=== PATIENT | female | born 1990 | race Two or more races ===

== ENCOUNTER 2024-06-29 12:54 | Outpatient (CLI) | payer OTHER | END 2024-06-29 12:55 | disposition home or self-care (01) | LOC: PRENATAL 12:54 | PROVIDERS: ATTEND Obstetrics & Gynecology Maternal & Fetal Medicine | DX: O36.80X0 Pregnancy with inconclusive fetal viability, not applicable or unspecified (principal); Z36.82 Encounter for antenatal screening for nuchal translucency; Z14.8 Genetic carrier of other disease; Z3A.12 12 weeks gestation of pregnancy ==

== ENCOUNTER 2024-08-24 08:18 | Outpatient (CLI) | payer OTHER | END 2024-08-24 08:19 | disposition home or self-care (01) | LOC: PRENATAL 08:18 | PROVIDERS: ATTEND Obstetrics & Gynecology Maternal & Fetal Medicine | DX: O44.00 Complete placenta previa NOS or without hemorrhage, unspecified trimester (principal); Z3A.19 19 weeks gestation of pregnancy ==

== ENCOUNTER 2024-10-22 08:22 | Outpatient (CLI) | payer OTHER | END 2024-10-22 08:23 | disposition home or self-care (01) | LOC: PRENATAL 08:22 | PROVIDERS: ATTEND Obstetrics & Gynecology Maternal & Fetal Medicine | DX: O26.849 Uterine size-date discrepancy, unspecified trimester (principal); O36.8199 Decreased fetal movements, unspecified trimester, other fetus; O36.5990 Maternal care for other known or suspected poor fetal growth, unspecified trimester, not applicable or unspecified; Z3A.27 27 weeks gestation of pregnancy ==

== ENCOUNTER 2024-11-02 15:51 | Outpatient (CLI) | payer OTHER ==
[2024-11-02 15:08] VITALS: BP 115/74
[2024-11-02] MEDS ORDERED: PRENATAL + DHA1 EAC1 PO (16:05)
[2024-11-02] MEDS ORDERED: [UNRECOGNIZED DRUG - OTHER] PO (16:05)
[2024-11-02] MEDS ORDERED: IRON325 MG PO (16:05)
[2024-11-02] MEDS ORDERED: DICLOFENAC35 MG PO (16:07)
[2024-11-02] MEDS ORDERED: TERBUTALINE SULFATE 1 MG/ML AMPUL SUBCUTANEO NR (16:20)
[2024-11-02 17:02] LABS: URINE APPEARANCE Cloudy; URINE BILIRRUBIN Negative (NEGATIVE); URINE COLOR Yellow; URINE GLUCOSE Negative (NEGATIVE); URINE KETONE Negative (NEGATIVE); URINE LEUKOCYTE Negative; URINE NITRATE Negative; URINE PROTEIN Negative (NEGATIVE); URINE UROBILINOGEN 0.2 E.U./dl
[2024-11-02 17:03] LABS: HEMATOCRIT 33.9 % (36.0-45.00); HEMOGLOBIN 11.7 g/dL (12.0-15.00); MEAN CELL VOLUME 90.4 fL (80.00-100.00); MEAN CORPUSCULAR HEMOGLOBIN 31.2 pg (27.00-32.0); MEAN CORPUSCULAR HGB CONC 34.5 g/dl (32.0-36.0); PLATELET COUNT 231 K/uL (150-450); RED BLOOD COUNT 3.75 M/uL (4.00-6.00); RED CELL DISTRIBUTION WIDTH 12.9 % (11.5-14.5)
[2024-11-02 17:06] LABS: URINE EPITHELIAL CELLS 12.1 uL (0.0-38.8); URINE RBC 11.9 uL (0.0-20.8); URINE WBC 108.6 uL (0.0-23.2)
[2024-11-02 17:17] LABS: INR < 0.93; PARTIAL THROMBOPLASTIN TIME 24.5 SECONDS (22.0-34.0); PROTHROMBIN TIME 9.9 SECONDS (9.0-11.5)
[2024-11-02 17:24] LABS: URINE CAST 0.58 uL (0.0-1.40); URINE MUCUS SCANT
[2024-11-02 17:25] LABS: URINE BLOOD Trace
[2024-11-02 17:27] LABS: ALBUMIN 3.2 gm/dL (3.4-5.0); BILIRUBIN TOTAL 0.18 mg/dL (0.3-1.2); CALCIUM 9.5 mg/dL (8.5-10.1); CREATININE SERUM 0.46 mg/dL (0.55-1.02); GFR 156.44; GLOBULINA 3.6 G/DL (2.4-3.5); POTASSIUM 4.03 mEq/L (3.5-5.1); TOTAL PROTEIN 6.8 gm/dL (6.4-8.2)
[2024-11-02 20:00] VITALS: BP 108/69
[2024-11-02 23:07] VITALS: BP 93/54
[2024-11-02] MEDS ORDERED: RINGERS SOLUTION,LACTATED 1,000 ML IV SCH (23:15)
[2024-11-03 03:15] VITALS: BP 109/66
[2024-11-03 07:06] VITALS: BP 92/56
[2024-11-03 10:33] VITALS: BP 97/56
== END 2024-11-03 10:33 | disposition home or self-care (01) ==
LOC: OBS/DEL 15:51
PROVIDERS: Obstetrics & Gynecology; ATTEND General Practice
DX: O46.93 Antepartum hemorrhage, unspecified, third trimester (principal); Z3A.30 30 weeks gestation of pregnancy

== ENCOUNTER 2024-11-06 10:03 | Outpatient (CLI) | payer OTHER ==
[~2024-11-06 10:03] MED LIST: DICLOFENAC35 MG PO; IRON325 MG PO; PRENATAL + DHA1 EAC1 PO; [UNRECOGNIZED DRUG - OTHER] PO
== END 2024-11-06 12:35 | disposition home or self-care (01) ==
LOC: NST 10:03
PROVIDERS: ATTEND General Practice
DX: Z34.83 Encounter for supervision of other normal pregnancy, third trimester (principal)

== ENCOUNTER → 2024-11-13 12:30 | Outpatient (CLI) | payer OTHER | END | disposition home or self-care (01) | LOC: PRENATAL 12:30 | PROVIDERS: ATTEND Obstetrics & Gynecology Maternal & Fetal Medicine | DX: O26.849 Uterine size-date discrepancy, unspecified trimester (principal); O36.8199 Decreased fetal movements, unspecified trimester, other fetus; O36.5990 Maternal care for other known or suspected poor fetal growth, unspecified trimester, not applicable or unspecified; Z3A.31 31 weeks gestation of pregnancy ==

== ENCOUNTER 2024-11-30 14:50 | Outpatient (CLI) | payer OTHER | END 2024-11-30 14:52 | disposition home or self-care (01) | LOC: PRENATAL 14:50 | PROVIDERS: ATTEND Obstetrics & Gynecology Maternal & Fetal Medicine | DX: O26.849 Uterine size-date discrepancy, unspecified trimester (principal); O36.8199 Decreased fetal movements, unspecified trimester, other fetus; O36.5990 Maternal care for other known or suspected poor fetal growth, unspecified trimester, not applicable or unspecified; Z3A.32 32 weeks gestation of pregnancy ==

== ENCOUNTER 2024-12-06 11:51 | Outpatient (CLI) | payer OTHER | END 2024-12-06 11:52 | disposition home or self-care (01) | LOC: PRENATAL 11:51 | PROVIDERS: ATTEND Obstetrics & Gynecology Maternal & Fetal Medicine | DX: Z76.1 Encounter for health supervision and care of foundling (principal) ==

== ENCOUNTER → 2024-12-20 08:14 | Outpatient (CLI) | payer OTHER | END | disposition home or self-care (01) | LOC: PRENATAL 08:14 | PROVIDERS: ATTEND Obstetrics & Gynecology Maternal & Fetal Medicine | DX: O26.849 Uterine size-date discrepancy, unspecified trimester (principal); O36.8199 Decreased fetal movements, unspecified trimester, other fetus; O36.5990 Maternal care for other known or suspected poor fetal growth, unspecified trimester, not applicable or unspecified; O32.9XX0 Maternal care for malpresentation of fetus, unspecified, not applicable or unspecified; Z3A.34 34 weeks gestation of pregnancy ==

== ENCOUNTER 2024-12-24 11:30 | Inpatient (IN) | payer OTHER ==
[~2024-12-24] VITALS: Ht 157.5 cm; Wt 59.9 kg
[2024-12-24 13:36] LABS: INR < 0.93; PARTIAL THROMBOPLASTIN TIME 23.7 SECONDS (22.0-34.0); PROTHROMBIN TIME 9.7 SECONDS (9.0-11.5)
[2024-12-28 09:39] VITALS: BP 132/86
[2024-12-28] MEDS ORDERED: CEFAZOLIN SODIUM 1,000 MG VIAL ONE (10:32)
[2024-12-28] MEDS ORDERED: ERYTHROMYCIN BASE OPHT 1GM EACH TUBE OP ONE (12:21)
[2024-12-28] MEDS ORDERED: OXYTOCIN 10 UNITS/ML VIAL ONE ×2 (12:21→17:21)
[2024-12-28] MEDS ORDERED: CHLORHEXIDINE GLUCONATE 120 ML BOTTLE TP SCH (13:30)
[2024-12-28] MEDS ORDERED: OXYTOCIN 1,000 ML IV SCH (13:30)
[2024-12-28] MEDS ORDERED: FAMOTIDINE/PF 20 MG/2 ML VIAL IV SCH (13:31)
[2024-12-28] MEDS ORDERED: MORPHINE SULFATE 4 MG/ML VIAL IV PRN (13:45)
[2024-12-28] MEDS ORDERED: ONDANSETRON HCL 2 MG/ML VIAL IV PRN (13:45)
[2024-12-28] MEDS ORDERED: MORPHINE SULFATE 4 MG/ML VIAL IV ONE (14:40)
[2024-12-28] MEDS ORDERED: FAMOTIDINE/PF 20 MG/2 ML VIAL ONE (16:54)
[2024-12-28] MEDS ORDERED: ACETAMINOPHEN 325 MG TABLET PO SCH (17:00)
[2024-12-28 17:49] LABS: BASO % 0.1 % (0.1-1.2); EOS # 0.01 (0.04-0.54); EOS % 0.1 % (0.7-7.0); HEMATOCRIT 30.8 % (34.1-44.9); HEMOGLOBIN 10.4 g/dL (11.2-15.7); LYMPH # 1.12 (1.18-3.74); LYMPH % 10.7 % (19.3-53.1); MEAN CORPUSCULAR HEMOGLOBIN 29.7 pg (25.6-32.2); MONO # 0.51 (0.24-0.82); MONO % 4.9 % (4.7-12.5); NEUT # 8.81 (1.56-6.13); NEUT % 83.7 % (34.0-71.1); PLATELET COUNT 148 K/uL (163-369); RED CELL DISTRIBUTION WIDTH 14.2 % (11.6-14.4)
[2024-12-28 18:31] VITALS: BP 148/79
[2024-12-28] MEDS ORDERED: KETOROLAC TROMETHAMINE 30 MG VIAL IV SCH (21:00)
[2024-12-29] VITALS (8 sets, daily range): BP systolic 112–146; BP diastolic 68–87
[2024-12-29] MEDS ORDERED: OxyCODONE HCL 5 MG TABLET (ROXICODONE) PO PRN ×2 (08:00→12:15)
[2024-12-29] MEDS ORDERED: IBUprofen 800 MG TABLET PO PRN (09:00)
[2024-12-29] MEDS ORDERED: DOCUSATE SODIUM 100MG CAP PO SCH (09:00)
[2024-12-29] MEDS ORDERED: SIMETHICONE 125 MG CAPSULE PO SCH (09:00)
[2024-12-29] MEDS ORDERED: ACETAMINOPHEN 500 MG GEL..CAP PO PRN (12:00)
[2024-12-29] MEDS ORDERED: IBUprofen 600 MG TABLET PO PRN (12:15)
[2024-12-29] MEDS ORDERED: ACETAMINOPHEN 325 MG TABLET PO PRN (13:30)
[2024-12-29 14:03] LABS: BASO % 0.3 % (0.1-1.2); EOS # 0.03 (0.04-0.54); EOS % 0.3 % (0.7-7.0); HEMATOCRIT 30.7 % (34.1-44.9); HEMOGLOBIN 10.3 g/dL (11.2-15.7); LYMPH # 1.12 (1.18-3.74); LYMPH % 12.3 % (19.3-53.1); MEAN CORPUSCULAR HEMOGLOBIN 30.5 pg (25.6-32.2); MONO # 0.49 (0.24-0.82); MONO % 5.4 % (4.7-12.5); NEUT % 81.3 % (34.0-71.1); PLATELET COUNT 173 K/uL (163-369); RED BLOOD COUNT 3.38 M/uL (3.93-5.22); RED CELL DISTRIBUTION WIDTH 14.6 % (11.6-14.4)
[2024-12-29 14:32] LABS: ALBUMIN 2.5 gm/dL (3.4-5.0); BILIRUBIN TOTAL 0.28 mg/dL (0.3-1.2); CALCIUM 9.2 mg/dL (8.5-10.1); CREATININE SERUM 0.59 mg/dL (0.55-1.02); GFR 117.38; GLOBULINA 3.4 G/DL (2.4-3.5); POTASSIUM 4.27 mEq/L (3.5-5.1); TOTAL PROTEIN 5.9 gm/dL (6.4-8.2)
[2024-12-29 18:10] LABS: PH,URINE 6.5 (5.0-8.0); URINE APPEARANCE Clear; URINE BILIRRUBIN Negative (NEGATIVE); URINE BLOOD Large; URINE COLOR Yellow; URINE GLUCOSE Negative (NEGATIVE); URINE KETONE Negative (NEGATIVE); URINE LEUKOCYTE Trace; URINE NITRATE Negative; URINE PROTEIN Negative (NEGATIVE); URINE UROBILINOGEN 0.2 E.U./dl
[2024-12-29 18:14] LABS: URINE BACTERIA 35.4 uL (0.0-1933); URINE EPITHELIAL CELLS 4.9 uL (0.0-38.8); URINE RBC 279.1 uL (0.0-20.8); URINE WBC 41.4 uL (0.0-23.2)
[2024-12-29 18:25] LABS: URINE CAST 0.58 uL (0.0-1.40)
[2024-12-30] VITALS (9 sets, daily range): BP systolic 120–139; BP diastolic 78–97; O2SAT 99–100
[2024-12-31 00:20] VITALS: BP 132/80
[2024-12-31 02:34] VITALS: BP 134/80
[2024-12-31 05:04] VITALS: BP 135/85
[2024-12-31 08:00] VITALS: BP 126/80
[2024-12-31] MEDS ORDERED: COLACE100 MG PO (12:07)
[2024-12-31] MEDS ORDERED: IBUPROFEN600 MG PO (12:07)
[2024-12-31] MEDS ORDERED: OXYCODONE HCL5 MG PO (12:07)
== END 2024-12-31 13:24 | disposition home or self-care (01) | DRG 788 ==
LOC: OB/GYN 11:30 → O/R 12-28 10:37 → OB/GYN 12-28 14:22
PROVIDERS: ADMIT General Practice; ATTEND General Practice
PROC: 4A1HXCZ Monitoring of Products of Conception, Cardiac Rate, External Approach (ICD-10-PCS; 2024-12-28)
PROC: 10D00Z1 Extraction of Products of Conception, Low, Open Approach (ICD-10-PCS; principal; 2024-12-28 07:00)
DX: O36.5930 Maternal care for other known or suspected poor fetal growth, third trimester, not applicable or unspecified (principal); O32.1XX0 Maternal care for breech presentation, not applicable or unspecified; O99.824 Streptococcus B carrier state complicating childbirth; Z3A.38 38 weeks gestation of pregnancy; Z37.0 Single live birth